=== PATIENT | female | born 1975 | race Caucasian/White ===

== ENCOUNTER 2016-07-29 09:41 | Emergency (ER) | payer MEDICARE, MEDICAID ==
--- NOTE | ~2016-07-29 | ER ---
PATIENT'S NAME: NANCY SANCHEZ [facility] AGE: 40 Y [address] ROOM: [place] [address] LOCATION: [facility] ADMIT DATE: 07/29/2016 ER/Outpatient Report DISCHARGE DATE: 07/29/2016 FAMILY PHYSICIAN: Luis Montoya MD ATTENDING PHYSICIAN: Trace Marroquin TIME OF ARRIVAL: 0946 hours. TIME OF EVALUATION: 0952 hours. CHIEF COMPLAINT: Migraine. HISTORY OF PRESENT ILLNESS: The patient is a 40-year-old female who presents to the emergency department today with a chief complaint of migraine. The patient does report she has a long history of migraines. She has been seen here in the emergency department multiple times for these migraines. She reports this started at 3:30 this morning when her woke her up from sleep. It is on the right side of her head. She has no neck pain. Denies any fevers or chills. Does have nausea with one episode of vomiting. Denies any nasal congestion. Does report her last similar headache to this was one month ago. This does feel like her typical migraines. She denies any thunderclap headache. It is not the worst headache of her life. She did take some Phenergan this morning as well as some hydrocodone and took a hot bath. Pain is currently 7/10 in severity. It is sharp. PAST MEDICAL HISTORY: Bipolar, anxiety, migraines, vertigo, [id number]-tilkqtomp diabetes, hypertension, and gastroesophageal reflux disease. PAST SURGICAL HISTORY: Appendectomy, bladder mesh sling, and hysterectomy. SOCIAL HISTORY: The patient smokes a pack per day for 20 years. Denies any alcohol or illicit drug use. ALLERGIES: PENICILLIN, TRAMADOL, TORADOL, LYRICA, AND BACTRIM. MEDICATIONS: Please see list. PATIENT'S NAME: NANCY SANCHEZ [facility] AGE: 40 Y [address] ROOM: [place] [address] LOCATION: [facility] ADMIT DATE: 07/29/2016 ER/Outpatient Report DISCHARGE DATE: 07/29/2016 FAMILY PHYSICIAN: Luis Montoya MD ATTENDING PHYSICIAN: Trace Marroquin NEUROLOGIST: Damien Abel MD REVIEW OF SYSTEMS: All systems are reviewed by myself and are negative with the exception of those discussed in the HPI and Past Medical History. PHYSICAL EXAMINATION: VITAL SIGNS: Weight 105 kg, blood pressure 119/69, pulse 70, respiratory rate 18, temperature 97.0, and oxygen saturation 95% on room air. GENERAL: The patient is a 40-year-old female who appears stated age, in mild acute distress at this time. HEENT: Head is normocephalic and atraumatic. Pupils are equal, round, and reactive to light and accommodation. Extraocular motions are intact. Nares are patent bilaterally. TMs are clear. Oropharynx is clear. NECK: Supple. There is no nuchal rigidity. CARDIOVASCULAR: Regular rate and rhythm. No murmurs, rubs, or gallops. LUNGS: Clear to auscultation bilaterally. No wheezes, rales, or rhonchi. ABDOMEN: Soft, nontender, and nondistended. No rebound, rigidity, or guarding. MUSCULOSKELETAL: The patient moves all 4 extremities. NEUROLOGICAL: GCS 15. Alert and oriented x4. Cranial nerves 2 through 12 are intact. Normal [id number]. Normal rapid hand movement. Equal railroad worker strength bilaterally. Downward going toes. No clonus. 2/4 reflexes. SKIN: Warm and dry. There are no rashes or lesions noted. LAB AND X-RAYS: None. IMPRESSION: 1. Cephalgia, migraine type. 2. Initial visit. EMERGENCY DEPARTMENT COURSE: The patient was brought back to the examination room. Seen and evaluated by myself. History and physical performed by myself. The patient was given 10 mg of Compazine and 50 mg of Benadryl IM. She does report this feels just like her previous migraines. I have asked that the patient follows up with Dr. Montoya in 2 to 3 days for re-evaluation. I have also asked her to call and follow up with Dr. Abel as needed. I have discussed return to care instructions including worsening symptoms or any other concerns, to return to the emergency department as soon as possible. The patient is agreeable. She is without further questions at this time. PATIENT'S NAME: NANCY SANCHEZ [facility] AGE: 40 Y [address] ROOM: [place] [address] LOCATION: ED ADMIT DATE: 07/29/2016 ER/Outpatient Report DISCHARGE DATE: 07/29/2016 FAMILY PHYSICIAN: Luis Montoya MD ATTENDING PHYSICIAN: Trace Marroquin DISPOSITION: The patient is discharged to home in good condition. DO FITO DELGADO/modl /[id number] d: 07/29/16 1306 t: 08/07/16 1926, OUTPATIENT REPORT
== END 2016-07-29 10:38 | disposition disaster alternative care site (69) ==
LOC: GMED 09:41
DX: G43.909 Migraine, unspecified, not intractable, without status migrainosus (principal); F31.9 Bipolar disorder, unspecified; E11.9 Type 2 diabetes mellitus without complications; I10 Essential (primary) hypertension; K21.9 Gastro-esophageal reflux disease without esophagitis; F17.210 Nicotine dependence, cigarettes, uncomplicated; Z90.710 Acquired absence of both cervix and uterus; Z88.0 Allergy status to penicillin; Z88.1 Allergy status to other antibiotic agents; Z90.49 Acquired absence of other specified parts of digestive tract
CPT/HCPCS: J0780; J1200

== ENCOUNTER 2016-12-02 19:24 | Emergency (ER) | payer MEDICARE, MEDICAID ==
--- NOTE | ~2016-12-02 | ER ---
PATIENT'S NAME: DANIEL [facility] AGE: 41 Y [address] ROOM: [place] [address] LOCATION: [facility] ADMIT DATE: 12/02/2016 ER/Outpatient Report DISCHARGE DATE: 12/02/2016 FAMILY PHYSICIAN: Luis Montoya MD ATTENDING PHYSICIAN: Navarro Rock Time of Patient's Arrival: 1924 hours. Time of Patient's Evaluation: 1940 hours. CHIEF COMPLAINT: Migraine headache. HISTORY OF PRESENT ILLNESS: This is a 41-year-old female who presents to the ER with a migraine headache that started around 8:30 this morning. The patient has a history of migraine headaches and is similar to her previous headaches since located on the right side of her head. It is making her feel nauseated, she has vomited several times, and she has had photophobia. She denies any recent illness. No fever or chills. She did take her home medications and repeated again at 12:30 this afternoon with no relief of her headache. She denies any other problems at this time. ALLERGIES: PENICILLIN, BACTRIM, LYRICA, TORADOL, AND TRAMADOL. MEDICATIONS: Please see medication list in nurse's notes. PAST MEDICAL HISTORY: 1. Migraines. 2. Bipolar. 3. Anxiety. 4. Vertigo. 5. COPD. PAST SURGERIES: Appendectomy, bladder sling, and hysterectomy. SOCIAL HISTORY: Smokes a half pack a day for the last 27 years. Denies any drug or alcohol use. REVIEW OF SYSTEMS: All systems were reviewed and were negative with the exception of those discussed in the HPI. [facility] 41 Y [address] ROOM: [place], [place] [address] LOCATION: [facility] ADMIT DATE: 12/02/2016 ER/Outpatient Report DISCHARGE DATE: 12/02/2016 FAMILY PHYSICIAN: Luis Montoya MD ATTENDING PHYSICIAN: Navarro Rock PHYSICAL EXAMINATION: VITAL SIGNS: Height 5 feet 5 inches stated, weight 104.5 kg taken, blood pressure is 121/77, pulse 82, respirations 18, temperature 96 degrees tympanically, and saturations 96% on room air. [place] Coma score is 15. GENERAL: Alert, calm, 41-year-old, in moderate distress. She is vomiting during examination. HEENT. Head: Normocephalic. Eyes: Pupils are equal and reactive to light. Ears: TMs display good light reflexes bilaterally. She does display moist mucous membranes. LUNGS: Clear to auscultation bilaterally. HEART: Regular rate and rhythm. EXTREMITIES: No clubbing or cyanosis. She has equal strength bilaterally, upper and lower extremities. LABORATORY DATA AND X-RAYS: None were done. IMPRESSION: Migraine headache. ASSESSMENT AND PLAN: The patient did not wish to have an IVP, she would rather have her medications intramuscularly. We did give her Compazine 10 mg and Benadryl 50 mg IM here in the ER. She states it did improve her nausea, but her headache is still quite intense, therefore, we gave her Nubain 10 mg, which did help her. We will dismiss her to home. She needs to continue to push fluids, monitor symptoms, and follow up with primary care physician in the next 1 to 2 days if needed. The patient understands and agrees with care. JULIAN GUPTA PA-C FOR [facility]/melania /[id number] d: 12/02/16 2345 t: 12/03/16 1803, OUTPATIENT REPORT
== END 2016-12-02 20:23 | disposition disaster alternative care site (69) ==
LOC: GMED 19:24
DX: G43.909 Migraine, unspecified, not intractable, without status migrainosus (principal); F31.9 Bipolar disorder, unspecified; F17.210 Nicotine dependence, cigarettes, uncomplicated; F41.9 Anxiety disorder, unspecified; J44.9 Chronic obstructive pulmonary disease, unspecified; Z88.0 Allergy status to penicillin; Z88.1 Allergy status to other antibiotic agents; Z88.5 Allergy status to narcotic agent; Z88.8 Allergy status to other drugs, medicaments and biological substances; Z90.49 Acquired absence of other specified parts of digestive tract; Z90.710 Acquired absence of both cervix and uterus; Z79.899 Other long term (current) drug therapy; Z98.51 Tubal ligation status
CPT/HCPCS: J0780; J1200; J2300

== ENCOUNTER → 2016-12-12 | Outpatient (CLI) | payer MEDICARE, MEDICAID | END | disposition disaster alternative care site (69) | LOC: GRAD 08:42 | DX: G43.909 Migraine, unspecified, not intractable, without status migrainosus (principal) ==